=== PATIENT | male | born 1970 | race Caucasian/White ===

== ENCOUNTER 2018-02-20 13:25 | Emergency (ER) | payer OTHER ==
[~2018-02-20] VITALS: Ht 180.3 cm; Wt 122.5 kg
[~2018-02-20 13:25] MED LIST: ACIDOPHILUS1 EAC3 PO; AMOX1TAB12 PO; COZAAR100 MG; TOPROL XL50 MG PO
[2018-02-20] MEDS ORDERED: ASPIR 8181 MG (14:53)
[2018-02-20] MEDS ORDERED: ZANTAC300 MG PO (17:39)
[2018-02-20] MEDS ORDERED: KETO10TA2 PO (17:39)
== END 2018-02-20 17:57 | disposition home or self-care (01) ==
LOC: ER 13:25
DX: K29.70 Gastritis, unspecified, without bleeding (principal); R10.11 Right upper quadrant pain

== ENCOUNTER 2018-07-22 10:51 | Emergency (ER) | payer OTHER ==
[~2018-07-22] VITALS: Ht 180.3 cm; Wt 118.8 kg
[~2018-07-22 10:51] MED LIST changes: +ASPIR 8181 MG; +KETO10TA2 PO; +ZANTAC300 MG PO
[2018-07-22] MEDS ORDERED: NORFLEX100MG PO (14:50)
[2018-07-22] MEDS ORDERED: KETO10TA2 PO (14:50)
== END 2018-07-22 14:52 | disposition home or self-care (01) ==
LOC: ER 10:51
DX: M54.2 Cervicalgia (principal)

== ENCOUNTER 2018-08-06 08:10 | Emergency (ER) | payer OTHER ==
[~2018-08-06] VITALS: Ht 180.3 cm; Wt 118.8 kg
[~2018-08-06 08:10] MED LIST changes: +NORFLEX100MG PO
== END 2018-08-06 11:40 | disposition home or self-care (01) ==
LOC: ER 08:10
DX: R51 Headache (principal); M54.2 Cervicalgia; R09.81 Nasal congestion

== ENCOUNTER 2020-03-20 16:11 | Emergency (ER) | payer OTHER ==
[~2020-03-20] VITALS: Ht 180.3 cm; Wt 117.9 kg
== END 2020-03-20 17:32 | disposition home or self-care (01) ==
LOC: ER 16:11
DX: L03.313 Cellulitis of chest wall (principal)

== ENCOUNTER 2020-04-01 19:06 | Emergency (ER) | payer OTHER ==
[~2020-04-01] VITALS: Ht 180.3 cm; Wt 120.2 kg
== END 2020-04-01 20:03 | disposition home or self-care (01) ==
LOC: ER 19:06
DX: M94.0 Chondrocostal junction syndrome [Tietze] (principal)

== ENCOUNTER → 2020-04-21 | Emergency (ER) | payer OTHER ==
[~2020-04-21] VITALS: Ht 180.3 cm; Wt 115.2 kg
== END | disposition home or self-care (01) ==
LOC: ER 13:06
DX: R07.89 Other chest pain (principal); Z03.818 Encounter for observation for suspected exposure to other biological agents ruled out

== ENCOUNTER 2021-02-04 06:11 | Emergency (ER) | payer OTHER ==
[~2021-02-04] VITALS: Ht 180.3 cm; Wt 115.2 kg
== END 2021-02-04 10:47 | disposition home or self-care (01) ==
LOC: ER 06:11
DX: R53.81 Other malaise (principal); R53.83 Other fatigue; R05 Cough

== ENCOUNTER 2021-05-30 01:52 | Emergency (ER) | payer OTHER ==
[~2021-05-30] VITALS: Ht 180.3 cm; Wt 111.6 kg
[2021-05-30] MEDS ORDERED: LEVSIN/SL0.125 MG SL (05:51)
[2021-05-30] MEDS ORDERED: PEPCID40 MG PO (05:51)
== END 2021-05-30 06:01 | disposition home or self-care (01) ==
LOC: ER 01:52
DX: K80.00 Calculus of gallbladder with acute cholecystitis without obstruction (principal)

== ENCOUNTER 2021-07-19 05:50 | Day surgery (SDC) | payer OTHER ==
[~2021-07-19 05:50] MED LIST changes: +LEVSIN/SL0.125 MG SL; +PEPCID40 MG PO
== END 2021-07-19 11:00 | disposition home or self-care (01) ==
LOC: CIR.AMB 05:50
PROVIDERS: ATTEND Surgery
DX: K80.10 Calculus of gallbladder with chronic cholecystitis without obstruction (principal); Z20.822 Contact with and (suspected) exposure to COVID-19

== ENCOUNTER 2021-11-30 13:38 | Emergency (ER) | payer OTHER ==
[~2021-11-30] VITALS: Ht 175.3 cm; Wt 108.4 kg
[2021-11-30] MEDS ORDERED: ZESTRIL10 M1 PO (13:48)
== END 2021-11-30 18:29 | disposition home or self-care (01) ==
LOC: ER 13:38
DX: M54.9 Dorsalgia, unspecified (principal)

== ENCOUNTER 2022-02-09 05:27 | Emergency (ER) | payer OTHER ==
[~2022-02-09] VITALS: Ht 175.3 cm; Wt 108.9 kg
[~2022-02-09 05:27] MED LIST changes: +PEPCID AC20 MG PO; +ZESTRIL10 M1 PO
[2022-02-09] MEDS ORDERED: ZESTRIL10 M1 (05:39)
== END 2022-02-09 13:48 | disposition home or self-care (01) ==
LOC: ER 05:27
DX: R07.89 Other chest pain (principal); I10 Essential (primary) hypertension

== ENCOUNTER 2022-05-02 09:55 | Emergency (ER) | payer OTHER ==
[~2022-05-02] VITALS: Ht 175.3 cm; Wt 113.4 kg
[~2022-05-02 09:55] MED LIST changes: +ZESTRIL10 M1
== END 2022-05-02 12:59 | disposition home or self-care (01) ==
LOC: ER 09:55
DX: R53.81 Other malaise (principal); Z20.822 Contact with and (suspected) exposure to COVID-19

== ENCOUNTER 2022-06-11 01:05 | Emergency (ER) | payer OTHER ==
[~2022-06-11] VITALS: Ht 175.3 cm; Wt 113.4 kg
[2022-06-11] MEDS ORDERED: PRILOSEC OTC20 MG PO (06:06)
[2022-06-11] MEDS ORDERED: PEPCID AC20 MG PO (06:06)
== END 2022-06-11 06:15 | disposition home or self-care (01) ==
LOC: ER 01:05
DX: K29.70 Gastritis, unspecified, without bleeding (principal)

== ENCOUNTER 2022-06-29 13:10 | Emergency (ER) | payer OTHER ==
[~2022-06-29] VITALS: Ht 180.3 cm; Wt 113.4 kg
[~2022-06-29 13:10] MED LIST changes: +PRILOSEC OTC20 MG PO
== END 2022-06-29 16:29 | disposition home or self-care (01) ==
LOC: ER 13:10
DX: N20.1 Calculus of ureter (principal); Z20.822 Contact with and (suspected) exposure to COVID-19

== ENCOUNTER 2022-10-07 22:20 | Emergency (ER) | payer OTHER ==
[~2022-10-07] VITALS: Ht 180.3 cm; Wt 111.1 kg
== END 2022-10-07 23:49 | disposition home or self-care (01) ==
LOC: ER 22:20
DX: K21.9 Gastro-esophageal reflux disease without esophagitis (principal)

== ENCOUNTER 2022-12-28 03:34 | Emergency (ER) | payer OTHER ==
[~2022-12-28] VITALS: Ht 175.3 cm; Wt 113.4 kg
[2022-12-28] MEDS ORDERED: HYDROCHLOROTHIA25 MG PO (06:30)
[2022-12-28] MEDS ORDERED: ZESTRIL20 MG PO (06:30)
== END 2022-12-28 06:35 | disposition home or self-care (01) ==
LOC: ER 03:34
DX: R51.9 Headache, unspecified (principal); I10 Essential (primary) hypertension

== ENCOUNTER → 2023-02-10 | Emergency (ER) | payer OTHER ==
[~2023-02-10] MED LIST changes: +HYDROCHLOROTHIA25 MG PO; +ZESTRIL20 MG PO
== END | disposition left against medical advice (07) ==
LOC: ER 00:12
DX: Z53.21 Procedure and treatment not carried out due to patient leaving prior to being seen by health care provider (principal)

== ENCOUNTER 2023-03-27 06:37 | Emergency (ER) | payer OTHER ==
[~2023-03-27] VITALS: Ht 180.3 cm; Wt 108.9 kg
[2023-03-27] MEDS ORDERED: PERCOCET 5-3251 EACH PO (10:39)
[2023-03-27] MEDS ORDERED: OMEPRAZOLE MAGN20 MG PO (10:39)
[2023-03-27] MEDS ORDERED: TAMS0.4C PO (10:39)
== END 2023-03-27 10:44 | disposition home or self-care (01) ==
LOC: ER 06:37
DX: N20.0 Calculus of kidney (principal); I10 Essential (primary) hypertension; K29.00 Acute gastritis without bleeding

== ENCOUNTER 2025-03-10 11:24 | Emergency (ER) | payer OTHER ==
[~2025-03-10] VITALS: Ht 180.3 cm; Wt 115.2 kg
[~2025-03-10 11:24] MED LIST changes: +OMEPRAZOLE MAGN20 MG PO; +PERCOCET 5-3251 EACH PO; +TAMS0.4C PO
[2025-03-10] MEDS ORDERED: ONDANSETRON HCL 2 MG/ML VIAL IV ONE (14:45)
[2025-03-10 15:09] LABS: ALBUMIN 3.6 gm/dL (3.4-5.0); BILIRUBIN TOTAL 0.47 mg/dL (0.3-1.2); BILIRUBIN,CONJUGATED 0.12 mg/dL (0.0-0.2); BILIRUBIN,UNCONJUGATED 0.35 mg/dL (0.0-0.6); CREATININE SERUM 1.15 mg/dL (0.70-1.30); GFR 66.78; GLOBULINA 4.2 G/DL (2.4-3.5); POTASSIUM 3.87 mEq/L (3.5-5.1); TOTAL PROTEIN 7.8 gm/dL (6.4-8.2)
[2025-03-10 15:16] LABS: BASO % 0.3 % (0.1-1.2); EOS # 0.01 (0.04-0.54); EOS % 0.1 % (0.7-7.0); HEMATOCRIT 41.6 % (40.1-51.0); HEMOGLOBIN 13.5 g/dL (13.7-17.5); LYMPH # 1.15 (1.18-3.74); LYMPH % 12.3 % (19.3-53.1); MEAN CORPUSCULAR HEMOGLOBIN 26.5 pg (25.6-32.2); MONO # 0.78 (0.24-0.82); MONO % 8.3 % (4.7-12.5); NEUT # 7.37 (1.56-6.13); NEUT % 78.8 % (34.0-71.1); PLATELET COUNT 386 K/uL (163-369); RED CELL DISTRIBUTION WIDTH 13.8 % (11.6-14.4)
[2025-03-10] MEDS ORDERED: PEPCID AC20 MG PO (22:21)
[2025-03-10] MEDS ORDERED: LEVSIN/SL0.125 MG SL (22:21)
== END 2025-03-10 22:30 | disposition home or self-care (01) ==
LOC: ER 11:24
PROVIDERS: Emergency Medicine
DX: K52.89 Other specified noninfective gastroenteritis and colitis (principal); I10 Essential (primary) hypertension; E11.9 Type 2 diabetes mellitus without complications

== ENCOUNTER 2025-03-31 16:37 | Emergency (ER) | payer OTHER ==
[~2025-03-31] VITALS: Ht 180.3 cm; Wt 113.4 kg
[2025-03-31] MEDS ORDERED: KETOROLAC TROMETHAMINE 10 MG TABLET PO PRN (22:15)
== END 2025-03-31 22:20 | disposition home or self-care (01) ==
LOC: ER 16:37
DX: M79.605 Pain in left leg (principal); I10 Essential (primary) hypertension

== ENCOUNTER 2025-05-11 02:34 | Emergency (ER) | payer OTHER ==
[~2025-05-11] VITALS: Ht 180.3 cm; Wt 114.3 kg
[2025-05-11 03:24] LABS: BASO % 0.5 % (0.1-1.2); EOS # 0.14 (0.04-0.54); EOS % 1.5 % (0.7-7.0); LYMPH # 3.29 (1.18-3.74); LYMPH % 35.7 % (19.3-53.1); MEAN PLATELET VOLUME 9.20 fl (9.4-12.4); MONO # 0.83 (0.24-0.82); MONO % 9.0 % (4.7-12.5); NEUT # 4.89 (1.56-6.13); NEUT % 53.1 % (34.0-71.1); RED CELL DISTRIBUTION WIDTH 14.2 % (11.6-14.4)
[2025-05-11 04:09] LABS: INR 0.94
[2025-05-11 04:13] LABS: ALT/SGPT 23.0 U/L (12-78); AST/SGOT 11.0 U/L (15-37); BILIRUBIN TOTAL 0.27 mg/dL (0.3-1.2); BUN CREA RATIO 22.0 (7.0-25.0); CREATININE SERUM 0.91 mg/dL (0.70-1.30); GFR 87.49; GLOBULINA 3.6 G/DL (2.4-3.5); GLUCOSE FASTING 146.0 mg/dL (65-100); OSMOLALITY SERUM 281.0 MOSM/KG (275-295)
[2025-05-11] MEDS ORDERED: LISINOPRIL 40 MG TABLET PO STA (06:29)
[2025-05-11] MEDS ORDERED: HYDROCHLOROTHIAZIDE 25 MG TABLET PO STA (06:30)
[2025-05-11] MEDS ORDERED: TOPROL XL25 M1 PO (08:07)
[2025-05-11 08:36] VITALS: BP 116/82; O2SAT 97
== END 2025-05-11 08:38 ==
LOC: ER 02:36
PROVIDERS: General Practice
DX: I49.8 Other specified cardiac arrhythmias (principal); R00.2 Palpitations; R00.8 Other abnormalities of heart beat; I10 Essential (primary) hypertension

== ENCOUNTER 2025-08-21 07:14 | Outpatient (CLI) | payer OTHER ==
[~2025-08-21 07:14] MED LIST changes: +TOPROL XL25 M1 PO
== END 2025-08-21 07:15 | disposition home or self-care (01) ==
LOC: NUCLEAR 07:14
PROVIDERS: ATTEND Internal Medicine
DX: I20.9 Angina pectoris, unspecified (principal)